=== PATIENT | female | born 1970 | race Caucasian/White ===

== ENCOUNTER 2017-06-27 08:33 | Day surgery (SDC) | payer OTHER ==
[2017-06-21 08:56] VITALS: BMI 30.9
[~2017-06-27 08:33] MED LIST: LACTATED RINGERS 1,000 ML IV SCH
[2017-06-27 09:05] VITALS: RESP 18; TEMP 97.9
[2017-06-27] MEDS ORDERED: LIDOCAINE 1% 20 ML VIAL (10MG/ML) FOR IV START INTRADERMA ONE (09:07)
[2017-06-27] MEDS ORDERED: MIDAZOLAM 2 MG/2 ML VIAL ONE (09:36)
[2017-06-27] MEDS ORDERED: GLYCOPYRROLATE 0.2 MG/ML 2 ML VIAL ONE (09:36)
[2017-06-27] MEDS ORDERED: PROPOFOL 10 MG/ML 20 ML VIAL IV ONE (09:36)
--- NOTE | 2017-06-27 09:43 | P.GSHP ---
History of Present Illness H&P Date: 06/27/17 Chief Complaint: History of colonic polyps Is a 46-year-old female presents today for colonoscopy. She has a history of colon polyps. Her last colonoscopy was 10 years ago. Past Medical History Past Medical History: Asthma, Hypertension Additional Past Medical History / Comment(s): loose stools then constipation, colitis, KIDNEY STONES History of Any Multi-Drug Resistant Organisms: MRSA Date of last positivie culture/infection: 2015 MDRO Source:: boil on stomach Past Surgical History: Cholecystectomy, Hysterectomy, Orthopedic Surgery, Tubal Ligation Additional Past Surgical History / Comment(s): several surgery for endometriosis. rt knee surgery x 2. lt knee surgery. cyst removed from jaw. rt shoulder repair Past Anesthesia/Blood Transfusion Reactions: No Reported Reaction Additional Past Anesthesia/Blood Transfusion Reaction / Comment(s): no hx blood transfusion Past Psychological History: ADD/ADHD, Anxiety Smoking Status: Never smoker Past Alcohol Use History: None Reported Past Drug Use History: None Reported - Past Family History Mother Family Medical History: No Reported History Father Family Medical History: Cancer Medications and Allergies Home Medications Medication Instructions Recorded Confirmed Type Albuterol Inhaler [Ventolin Hfa 1 puff INHALATION RT-Q6H PRN 05/13/14 06/21/17 History Inhaler] Albuterol Nebulized [Ventolin 2.5 mg INHALATION RT-Q6H PRN 05/13/14 06/21/17 History Nebulized] Dextroamphetamine/Amphetamine 20 mg PO BID 05/13/14 06/21/17 History [Adderall] Hydrochlorothiazide [Hydrodiuril] 25 mg PO DAILY 05/13/14 06/21/17 History Allergies Allergy/AdvReac Type Severity Reaction Status Date / Time No Known Allergies Allergy Verified 06/21/17 08:49 Surgical - Exam Vital Signs Temp Pulse Resp BP Pulse Ox 97.9 F 64 18 106/63 97 06/27/17 09:03 06/27/17 09:03 06/27/17 09:03 06/27/17 09:03 06/27/17 09:03 - General well developed, no distress - Eyes PERRL - ENT normal pinna - Neck no masses - Respiratory normal expansion - Cardiovascular Rhythm: regular - Abdomen Abdomen: soft, non tender Assessment and Plan Plan: History of colon polyps. We'll perform colonoscopy.
--- NOTE | 2017-06-27 10:03 | P.OP ---
Date of Procedure: 06/27/17 Preoperative Diagnosis: History of colon polyps Postoperative Diagnosis: Normal colonoscopy Procedure(s) Performed: Colonoscopy Implants: Anesthesia: MAC Surgeon: Jimmie Harrington Pathology: none sent Condition: stable Disposition: PACU Indications for Procedure: Operative Findings: Description of Procedure: PROCEDURE: The patient was placed on the endoscopy table in the lateral position. Digital rectal examination was performed which revealed no abnormalities. The prostate was symmetrical without nodules. Flexible colonoscope was then placed in the patient's anus and passed throughout the entire colon. The ileocecal valve was visualized. The cecum, ascending, transverse, descending and sigmoid colon were normal. The rectum was normal as well. There were no masses, polyps or diverticula noted in the entire colon. SUMMARY OF FINDINGS: Normal colonoscopy.
--- NOTE | 2017-06-27 10:05 | P.OP ---
Date of Procedure: 06/27/17 Preoperative Diagnosis: History of colon polyps Postoperative Diagnosis: Normal colonoscopy Procedure(s) Performed: Colonoscopy Implants: Anesthesia: MAC Surgeon: Jimmie Harrington Pathology: none sent Condition: stable Disposition: PACU Indications for Procedure: Operative Findings: Description of Procedure: PROCEDURE: The patient was placed on the endoscopy table in the lateral position. Digital rectal examination was performed which revealed no abnormalities. . Flexible colonoscope was then placed in the patient's anus and passed throughout the entire colon. The ileocecal valve was visualized. The cecum, ascending, transverse, descending and sigmoid colon were normal. The rectum was normal as well. There were no masses, polyps or diverticula noted in the entire colon. SUMMARY OF FINDINGS: Normal colonoscopy.
[2017-06-27 10:19] VITALS: BP 116/73; PULSE 78
== END 2017-06-27 10:35 | disposition home or self-care (01) ==
LOC: ORWHC2ENDO 08:33
PROVIDERS: ATTEND Surgery
DX: Z12.11 Encounter for screening for malignant neoplasm of colon (principal); Z86.010 Personal history of colon polyps; J45.909 Unspecified asthma, uncomplicated; I10 Essential (primary) hypertension; F90.9 Attention-deficit hyperactivity disorder, unspecified type; F41.9 Anxiety disorder, unspecified; Z79.899 Other long term (current) drug therapy
CPT/HCPCS: J2250; J2704; G0105

== ENCOUNTER → 2017-12-20 | Outpatient (CLI) | payer OTHER ==
--- NOTE | 2017-12-20 12:22 | CT ---
EXAMINATION TYPE: CT brain wo/w con DATE OF EXAM: 12/20/2017 COMPARISON: CT brain March 23, 2012 HISTORY: Headache unusual duration CT DLP: 1887.60 mGycm Automated Exposure Control for Dose Reduction was Utilized. TECHNIQUE: CT scan of the head is performed without and with IV Contrast, patient injected with 100 m l mL of Omnipaque 300. FINDINGS: Noncontrast images show no acute intracranial hemorrhage or midline shift. The ventricles and sulci are within normal limits in size. Rodriguez-white matter differentiation is maintained. Postcon trast images show no suspicious enhancing intraparenchymal mass. The globes are intact and the visual ized sinuses are clear. IMPRESSION: No significant finding is seen to account for patient's symptoms on current study.
== END ==
LOC: RADCTMAIN 09:40
PROVIDERS: ATTEND Nurse Practitioner Women's Health
DX: G44.85 Primary stabbing headache (principal)
CPT/HCPCS: 70470; Q9967

== ENCOUNTER → 2018-07-11 | Outpatient (CLI) | payer OTHER ==
--- NOTE | 2018-07-11 11:04 | XR ---
EXAMINATION TYPE: XR cervical spine w flex/ext DATE OF EXAM: 07/11/2018 TECHNIQUE: Frontal, lateral, oblique, dynamic flexion and extension lateral images, and open mouth vi ew of the cervical spine are obtained. HISTORY: BL arm numbness history of migraine headaches COMPARISON: Cervical spine x-ray May 21, 2010 FINDINGS: The cervical spine is visualized in its entirety from C1 thru the top of T1 level, it is s atisfactory in alignment without evidence of acute fracture or dislocation. The pre-vertebral soft t issue appears within normal limits. The C1-C2 articulation is within normal limits on the open mouth view. Vertebral body heights and disc space heights are maintained. The oblique images are within n ormal limits. Dynamic images show satisfactory flexion and extension without change in alignment or s uspicious focal disc space narrowing. Overlying soft tissue is unremarkable. IMPRESSION: Unremarkable study.
== END | disposition home or self-care (01) ==
LOC: RADXRMAIN 10:27
PROVIDERS: ATTEND Family Medicine
DX: R20.0 Anesthesia of skin (principal)
CPT/HCPCS: 72052

== ENCOUNTER → 2018-08-09 | Outpatient (CLI) | payer OTHER ==
[2018-08-08 15:41] VITALS: BMI 34.5
[2018-08-09 13:31] VITALS: BP 110/73; PULSE 81; RESP 18
--- NOTE | 2018-08-09 13:38 | P.CONS ---
History of Present Illness - Reason for Consult Consult date: 08/09/18 - Chief Complaint Right-sided headache - History of Present Illness This is a 47-year-old female with migraine headache and possible occipital neuralgia. The patient was referred to us for occipital nerve block by her neurologist. The patient is taking antimigraine medications but still her headache is not well controlled. She gets nauseated and sensitive to light with her. She also feels tingling in the left side of her body and even outside her migraine headaches. Past Medical History Past Medical History: Asthma, Hypertension Additional Past Medical History / Comment(s): ,colitis, KIDNEY STONES. CHRONIC HEADACHES. HX MRSA TO STOMACH, HEAD AND JAW-LAST + CULTURE FROM JAW IN 2017 History of Any Multi-Drug Resistant Organisms: MRSA Year Discovered:: 2017 MDRO Source:: JAW Past Surgical History: Cholecystectomy, Hysterectomy, Orthopedic Surgery, Tubal Ligation Additional Past Surgical History / Comment(s): several surgery for endometriosis. rt knee surgery x 2. lt knee surgery. cyst removed from jaw. rt shoulder repair Past Anesthesia/Blood Transfusion Reactions: No Reported Reaction Additional Past Anesthesia/Blood Transfusion Reaction / Comm: no hx blood transfusion Past Psychological History: ADD/ADHD, Anxiety Smoking Status: Never smoker Past Alcohol Use History: None Reported Past Drug Use History: None Reported - Past Family History Mother Family Medical History: No Reported History Father Family Medical History: Cancer Medications and Allergies Home Medications Medication Instructions Recorded Confirmed Type Albuterol Inhaler [Ventolin Hfa 1 puff INHALATION RT-Q6H PRN 05/13/14 08/09/18 History Inhaler] Albuterol Nebulized [Ventolin 2.5 mg INHALATION RT-Q6H PRN 05/13/14 08/09/18 History Nebulized] Dextroamphetamine/Amphetamine 20 mg PO BID 05/13/14 08/09/18 History [Adderall] Topiramate [Topamax] 100 mg PO HS 08/08/18 08/09/18 History Topiramate [Topiramate ER] 25 mg PO DAILY 08/08/18 08/09/18 History Allergies Allergy/AdvReac Type Severity Reaction Status Date / Time No Known Allergies Allergy Verified 08/09/18 13:03 Physical Exam Vitals: Vital Signs Pulse Resp BP Pulse Ox 08/09/18 13:05 81 18 110/73 96 Intake and Output 08/08/18 08/09/18 08/09/18 22:59 06:59 14:59 Other: Weight 88.451 kg - Constitutional General appearance: obese - EENT Eyes: PERRLA - Respiratory Respiratory: bilateral: CTA - Cardiovascular Rhythm: regular - Neurologic Neuro exam of the upper extremities showed normal muscle strength and normal and symmetrical deep tendon reflexes. She has significant tenderness in the occipital area on the right side. She also has tenderness in the right paravertebral cervical area. She has normal range of motion of the cervical spine Neurologic: CNII-XII intact - Psychiatric Psychiatric: A&O x's 3, appropriate affect, intact judgment & insight Assessment and Plan Assessment: Right occipital neuralgia Cervical spondylosis without myelopathy Possible cervicogenic headache Asthma Plan: I'll schedule the patient to have right greater occipital nerve block. if There is no improvement after this injection then we'll plan on doing MRI of the cervical spine. The patient's history of nausea postoperatively and asthma attack. When we do the above-mentioned procedure think we should give her Zofran preoperatively and she should used her inhalers too. The patient is on anti-migraine headache medications and she does not take any opioids. I thank you for the referral
== END | disposition home or self-care (01) ==
LOC: PNWHC3 12:54
PROVIDERS: ATTEND Anesthesiology
DX: M54.81 Occipital neuralgia (principal); M47.812 Spondylosis without myelopathy or radiculopathy, cervical region; J45.909 Unspecified asthma, uncomplicated; I10 Essential (primary) hypertension; Z90.49 Acquired absence of other specified parts of digestive tract; Z90.710 Acquired absence of both cervix and uterus; Z98.890 Other specified postprocedural states; Z79.899 Other long term (current) drug therapy
CPT/HCPCS: 99211

== ENCOUNTER → 2018-08-14 | Outpatient (CLI) | payer OTHER ==
[2018-08-14 14:46] LABS: Basophils % (A) 0 %; Eosinophils # (A) 0.2 k/uL (0-0.7); Eosinophils % (A) 1 %; HCT 52.2 % (34.0-46.0); HGB 16.6 gm/dL (11.4-16.0); Lymphocytes # (A) 2.1 k/uL (1.0-4.8); Lymphocytes % (A) 16 %; MCH 27.3 pg (25.0-35.0); MCHC 31.9 g/dL (31.0-37.0); MCV 85.6 fL (80.0-100.0); Mean Platelet Volume 5.9; Monocytes # (A) 0.5 k/uL (0-1.0); Monocytes % (A) 4 %; Neutrophils # (A) 10.7 k/uL (1.3-7.7); Neutrophils % (A) 78 %; Platelet Count 381 k/uL (150-450); RDW 13.5 % (11.5-15.5); WBC 13.7 k/uL (3.8-10.6)
[2018-08-14 15:07] LABS: ALT 37 U/L (9-52); AST 24 U/L (14-36); Alkaline Phosphatase 55 U/L (38-126); Anion Gap 9 mmol/L; Blood Urea Nitrogen 12 mg/dL (7-17); Calcium 9.8 mg/dL (8.4-10.2); Carbon Dioxide 24 mmol/L (22-30); Chloride 108 mmol/L (98-107); Glucose 104 mg/dL (74-99); Potassium 4.3 mmol/L (3.5-5.1); Sodium 141 mmol/L (137-145); Total Bilirubin 0.6 mg/dL (0.2-1.3)
[2018-08-14 15:52] LABS: Erythrocyte Sedimentation Rate 10 mm/hr (0-20)
[2018-08-15 14:02] LABS: APTT 44 Sec(s) (<43); APTT 1:1 Mix 38 Sec(s) (<43); DRVVT 1:1 Mix 42 Sec(s) (<44); Dilute Russell Viper Venom 51 Sec(s) (<44)
== END | disposition home or self-care (01) ==
LOC: LABWHC1 14:00
PROVIDERS: ATTEND Physician Assistant Medical
DX: M25.50 Pain in unspecified joint (principal)
CPT/HCPCS: 36415; 80053; 84443; 85025; 85613; 85652; 85730; 85732; 86038

== ENCOUNTER → 2018-08-21 | Day surgery (SDC) | payer OTHER ==
[2018-08-15 15:32] VITALS: BMI 34.5
[~2018-08-21] MED LIST changes: +IV FLUID CONTINUATION 1,000 ML IV ONE; +LIDOCAINE 1% 20 ML VIAL (10MG/ML) FOR IV START INTRADERMA ONE; +ONDANSETRON 4 MG/2 ML VIAL IVP ONE; +ONDANSETRON 4 MG/2 ML VIAL ONE
[2018-08-21 08:20] VITALS: TEMP 96.9
--- NOTE | 2018-08-21 09:14 | P.PCN ---
Date of Procedure: 08/21/18 Procedure(s) Performed: Preoperative diagnoses= 1- occipital neuralgia 2-cervical spondylosis Postoperative diagnoses= same as preoperative diagnosis. Procedure= right Greater occipital nerve block Anesthesia= moderate sedation with Versed 2 mg and fentanyl 100 micrograms. Estimated blood loss=minimal. Procedure indication= the patient had a history of severe chronic neck pain , and headache, diagnosed with occipital neuralgia exam was positive for severe tenderness over the occipital nerve bilaterally, she will be a good candidate occipital nerve block, patient failed conservative management Procedure description= the patient was seen and identified in the preoperative holding area, risks and benefits and alternative of the procedure and possible complications discussed with the patient, and he agreed with the preceding, patient signed the consent, an IV was started, and vital signs were monitored and were stable throughout the procedure, patient was placed in the sitting position or table and the neck area was prepped and draped with a sterile fashion, vital signs were closely monitored during the procedure, 25-gauge needle advanced 1 inch lateral to the occipital protuberance on the right side , at the location of the right occipital nerve , then after negative aspiration for heme and CSF and there was no paresthesia during the injection, 6 ml of Robivacaine 0.5% and 20 mg of Kenalog injected after negative aspiration, the needle removed,. Patient tolerated the procedure well without any complication, The patient returned to supine position after the back was cleaned and a Band- Aid applied, the patient transported to recovery room in stable condition and he was monitored for 30 minutes before he was discharged home and then patient was reexamined before going home and patient was discharged in stable condition and patient will follow up with the pain clinic in a f
[2018-08-21 09:54] VITALS: BP 124/82; PULSE 74; RESP 18
== END | disposition home or self-care (01) ==
LOC: ORPAIN 07:44
PROVIDERS: ATTEND Specialist
DX: M54.81 Occipital neuralgia (principal); G89.29 Other chronic pain; M47.812 Spondylosis without myelopathy or radiculopathy, cervical region
CPT/HCPCS: 64405; J2250; J3301; J2405; J3010

== ENCOUNTER → 2018-09-18 | Day surgery (SDC) | payer OTHER ==
[2018-09-12 11:13] VITALS: BMI 33.6
[~2018-09-18] MED LIST changes: -IV FLUID CONTINUATION 1,000 ML IV ONE; -LIDOCAINE 1% 20 ML VIAL (10MG/ML) FOR IV START INTRADERMA ONE; -ONDANSETRON 4 MG/2 ML VIAL IVP ONE; +SODIUM CHLORIDE 0.9% 500 ML 500 ML IV ONE
[2018-09-18 10:10] VITALS: TEMP 98
--- NOTE | 2018-09-18 11:11 | P.PCN ---
Date of Procedure: 09/18/18 Procedure(s) Performed: Preoperative diagnoses= 1- occipital neuralgia 2-cervical spondylosis Postoperative diagnoses= same as preoperative diagnosis. Procedure= right Greater occipital nerve block Anesthesia= moderate sedation with Versed 2 mg and fentanyl 100 micrograms. Estimated blood loss=minimal. Procedure indication= the patient had a history of severe chronic neck pain , and headache, diagnosed with occipital neuralgia exam was positive for severe tenderness over the occipital nerve bilaterally, she will be a good candidate occipital nerve block, patient failed conservative management Procedure description= the patient was seen and identified in the preoperative holding area, risks and benefits and alternative of the procedure and possible complications discussed with the patient, and he agreed with the preceding, patient signed the consent, an IV was started, and vital signs were monitored and were stable throughout the procedure, patient was placed in the sitting position or table and the neck area was prepped and draped with a sterile fashion, vital signs were closely monitored during the procedure, 25-gauge needle advanced 1 inch lateral to the occipital protuberance on the right side , at the location of the right occipital nerve , then after negative aspiration for heme and CSF and there was no paresthesia during the injection, 6 ml of Robivacaine 0.5% and 20 mg of Kenalog injected after negative aspiration, the needle removed,. Patient tolerated the procedure well without any complication, The patient returned to supine position after the back was cleaned and a Band- Aid applied, the patient transported to recovery room in stable condition and he was monitored for 30 minutes before he was discharged home and then patient was reexamined before going home and patient was discharged in stable condition and patient will follow up with the pain clinic in a few weeks
[2018-09-18 11:44] VITALS: BP 117/67; PULSE 78; RESP 16
== END ==
LOC: ORPAIN 09:22
PROVIDERS: ATTEND Specialist
DX: M54.81 Occipital neuralgia (principal); M47.812 Spondylosis without myelopathy or radiculopathy, cervical region; Z86.14 Personal history of Methicillin resistant Staphylococcus aureus infection
CPT/HCPCS: 64405; J2250; J3301; J2405; J3010

== ENCOUNTER → 2018-10-01 | Outpatient (CLI) | payer OTHER ==
--- NOTE | 2018-10-01 16:17 | MR ---
EXAMINATION TYPE: MR cervical spine wo con DATE OF EXAM: 10/01/2018 COMPARISON: Plain film 07/11/2018 HISTORY: Cervicalgia TECHNIQUE: Multiplanar, multisequence images of the cervical spine were acquired. C2-C3: No evidence for degenerative disc disease. No disc bulge/herniation or protrusion. No Canal stenosis. Foramina are patent bilaterally. C3-C4: No evidence for degenerative disc disease. No disc bulge/herniation or protrusion. No Canal stenosis. Foramina are patent bilaterally. C4-C5: No evidence for degenerative disc disease. No disc bulge/herniation or protrusion. No Canal stenosis. Foramina are patent bilaterally. C5-C6: No evidence for degenerative disc disease. No disc bulge/herniation or protrusion. No Canal stenosis. Foramina are patent bilaterally. C6-C7: No evidence for degenerative disc disease. No disc bulge/herniation or protrusion. No Canal stenosis. Foramina are patent bilaterally. C7-T1: No evidence for degenerative disc disease. No disc bulge/herniation or protrusion. No Canal stenosis. Foramina are patent bilaterally. Cervical segments are intact. There is normal alignment. Cervical spinal cord is of normal signal. Craniovertebral junction relationships are within normal limits. IMPRESSION: Normal cervical spine MRI
== END | disposition home or self-care (01) ==
LOC: RADMRIMAIN 12:00
PROVIDERS: ATTEND Family Medicine
DX: M54.2 Cervicalgia (principal)
CPT/HCPCS: 72141

== ENCOUNTER → 2018-10-04 | Outpatient (CLI) | payer OTHER ==
[2018-10-04 13:55] VITALS: BP 128/62; PULSE 99; RESP 16
--- NOTE | 2018-10-04 14:48 | P.PAINPG ---
Subjective Progress Note Date: 10/04/18 This is a follow-up visit for this 48 years old female with a chronic history of severe, neck pain and severe headache, she is diagnosed with right-sided occipital neuralgia, and cervicogenic headache, she reported that the her headache now becoming bilateral, it is spreading from the right side towards the left side, increased with any neck movement, and she had a recent MRI of the cervical spine that showed that she had no significant abnormalities, patient denies any motor or sensory deficit, she denies any fever or night sweats, and there is no change in the bowel movement or urination, we have done occipital nerve block 2, and she reported that she had serial benefits from it. She continued to have severe headache associated with severe neck pain Patient tried multiple medication for migraine headache without any benefit Objective - Vital Signs Vital signs: Vital Signs Temp Pulse 99 10/04/18 13:45 Resp 16 10/04/18 13:45 BP 128/62 10/04/18 13:45 Pulse Ox 96 10/04/18 13:45 Intake & Output 10/03/18 10/04/18 10/04/18 18:59 06:59 18:59 Weight 88.451 kg - Exam Physical Examinations : 1-Constitutiona : Cooperative , not in acute distress . 2-HEENT : nech ; supple , no Lymphadenopathy , normal thyroid size . eyes : no ptosis , no icterus, no photophobia . ENT : normal of hearing , normal oropharynx , no Thrush . 3- Respiratory : Chest clear to auscultations Bilaterally , no wheezing , no Rhonchi . 4- Cardiovascular : regular rate and rhythem , S1 , S2 , no S3 , no S4. 5- Gastrointestinal : abdomen soft no tenderness , bowel sounds , no organomegally . 6- Genitourinary : Defferred . 7- neurologic : Cranial nerve II to XII intact , no focal neurological deffecit . 8-psychatric : alert , oriented X 3 , appropriate affect , intact judgment and insight . 9-Lymphatic : no Lymphadenopathy . 10- musculoskeltal : Cervical Spine motor stregnth in the deltoid and biceps, normal right side , normal Left side motor stregnth biceps and the wrist extensors normal right side ,normal left side . motor stregnth in the triceps muscle . normal Right side , normal Left side deep tendon reflexes normal at the biceps , normal at Brachioradialis , normal at triceps. positive cervical facet loading test Severe tenderness over the occipital nerves bilaterally Multiple trigger point in the cervical paravertebral muscles and suprascapular muscles and rhomboid muscles.. Lumber spine moter stegnth lower extremities , thigh and legs 5/5 Right side , 5/5 Left side Multiple trigger points identified in the lumbar paravertebral muscles Assessment and Plan Plan: Assessment and plan= 1-bilateral occipital neuralgia. 2-cervicogenic headache 3-fibromyalgia Patient had no benefit from occipital nerve block done previously. Patient potentially could benefit from cervical medial branch block at C2 3 , C3 4 , and third occipital nerve And if she had good benefit from a block then we will proceed with the radiofrequency ablation of the medial branch at the leveles mentioned above. Patient reported she had no benefit from Neurontin , I will discontinue Neurontin and start patient on Lyrica 25 mg 3 times a day Also patient could benefit from amitriptyline 25 mg every at bedtime, and this will be a treatment for pain, headache, and sleep, Clinic will help to improve her mood Time with Patient: Less than 30 PQRS Measure Charge Sheet Measure #130: Documentation of Current Meds in Medical Chart: Patient's medications documented in chart Measure #226: Tobacco Use: Screen & Cessation Intervention: Pt not a tobacco user Measure #111: Pneumonia Vaccination: Pneumococcal vaccine administered or previously received Measure #47: Advance Care Plan: Advance care planning discussed & documented, pt chose/unable to give Measure #412: Opioid Treatment Agreement: No documentation of signed opioid treatment agreement Measure #408: Opioid Therapy Follow-up Evaluation: Patient had NO f/u eval minimum every 3 months during opioid therapy Measure #317: Preventitive Care & Scrn High Bld Press & F/U: Normal blood pressure, f/u not required Measure #128: Body Mass Index (BMI) Screening & Follow-up: BMI documented ABOVE normal parameters - f/u documented Measure #131: Pain Assessment & Follow-up: Pain positive & plan documented, Follow-up scheduled Measure #431: Unhealthy Alcohol Use Preventative Care & Scrn: Patient not identified as an unhealthy alcohol user PQRS Narrative: Smoking Status Never smoker Do You Want the Pneumonia No Vaccine AT THIS TIME? Blood Pressure 128/62 Pain Intensity [Bilateral 6 Posterior Neck] Scale Used Numeric (1 - 10) Hx Alcohol Use (MH) No Home Medications: Ambulatory Orders Albuterol Inhaler [Ventolin Hfa Inhaler] 1 puff INHALATION RT-Q6H PRN 05/13/14 Albuterol Nebulized [Ventolin Nebulized] 2.5 mg INHALATION RT-Q6H PRN 05/13/14 Dextroamphetamine/Amphetamine [Adderall] 20 mg PO BID 05/13/14 Ondansetron [Zofran] 4 mg PO Q12HR PRN 08/15/18 Ergocalciferol (Vitamin D2) [Vitamin D2] 50,000 unit PO WEEKLY 10/04/18 Gabapentin [Neurontin] 300 mg PO TID 10/04/18 Omeprazole 20 mg PO DAILY 10/04/18 Controlled Substance Measures - Controlled Substance Measures Is patient prescribed a controlled substance at discharge?: No When asked, does pt state using other controlled substances?: No If prescribed controlled substance>3 days was MAPS reviewed?: No If Rx opioid, was Start Talking consent form obtained?: No If opioid is for acute pain is fill amount 7 days or less?: No Was information provided regarding opioid addiction?: No
== END | disposition home or self-care (01) ==
LOC: PNWHC3 13:24
PROVIDERS: ATTEND Specialist
DX: G89.29 Other chronic pain (principal); R51 Headache; M54.81 Occipital neuralgia; M79.7 Fibromyalgia; M54.2 Cervicalgia; Z79.899 Other long term (current) drug therapy
CPT/HCPCS: 99211

== ENCOUNTER 2018-11-12 06:59 | Day surgery (SDC) | payer OTHER ==
[2018-10-16 14:25] VITALS: BMI 35.1
[~2018-11-12 06:59] MED LIST changes: -LACTATED RINGERS 1,000 ML IV SCH; -ONDANSETRON 4 MG/2 ML VIAL ONE; -SODIUM CHLORIDE 0.9% 500 ML 500 ML IV ONE; +SODIUM CHLORIDE 0.9% 500 ML 500 ML IV SCH
[2018-11-12 07:28] VITALS: TEMP 97.9
[2018-11-12] MEDS ORDERED: LACTATED RINGERS 1,000 ML IV ONE ×2 (07:29→08:25)
--- NOTE | 2018-11-12 08:27 | P.PCN ---
Date of Procedure: 11/12/18 Procedure(s) Performed: PREOPERATIVE DIAGNOSIS: 1-Cervical Spondylosis with Facet Arthropathy.without myelopathy. 2-occipital neuralgia. 3-cervicogenic headache POSTOPERATIVE DIAGNOSIS: Same as preop diagnosis. PROCEDURES: Diagnostic Bilateral C2-3 ,C3-4,medial branch blocks, with fluoroscopic guidance. Diagnostic bilateral 3rd occipital nerve blocks under fluoroscopy guidance ANESTHESIA: Local with 1% lidocaine; moderate sedation with Versed 2 mg , and fentanyl 100 micrograms EBL: Minimal PROCEDURE INDICATION: The patient with neck pain and headache ,unresponsive to more conservative treatments. PROCEDURE DESCRIPTION / TECHNIQUE: The patient was seen and identified in the preoperative area. Risks, benefits, complications, and alternatives were discussed with the patient, the patient agreed to proceed with the procedure and signed the consent. IV was started. Vital signs remained stable throughout the procedure. Patient was taken to the OR and time out was completed. The patient was placed in the prone position on the procedure table. A pillow was placed under the patients chest to increase the cervical interlaminar space. The cervical area was prepped and draped in the usual sterile fashion. Critical pause was taken. Vital signs were closely monitored during the procedure. Conscious sedation was used during the procedure to decrease patients anxiety. Using cross-table lateral fluoroscopy, the centroid of the trapezoid of right C2 ,C3, was identified, marked, and localized with 1% lidocaine 1 ml at each level for skin and Sub Q infiltrations . Subsequently, a 22 G spinal needle was advanced guided by fluoroscopy to the centroid of the trapezoid of Right C2 ,C3, [place] tip position was confirmed at the centroid of the trapezoids of Right C2 ,C3 with anteroposterior fluoroscopy. Subsequently, 1ml of preservative-free Ropivacaine 0.5% mixed with Depo-Medrol 20 mg and half ml of the mixture was injected after negative aspiration for blood and CSF. [place] was then removed intact the same procedure was repeated at the left C2- 3, C3-4, levels. And to do the third occipital nerve block 22-gauge Quincke Needle placed at the center of the facet joint between the C2 and C3 vertebra, needle placement confirmed with AP and lateral view,first I did the right side , needle placement confirmed with AP and lateral view, then after needle placement confirmed ropivacaine 0.5% half mL injected after negative aspiration, and the same procedure done for the left side ,left side third occipital nerve block under fluoroscopy guidance after needle placement confirmed ropivacaine 0.5% half mL injected after negative aspiration COMPLICATIONS: No acute complications. DISPOSITION / PLANS: The patient was placed in a supine position and transferred to the recovery area in a stable condition for observation and was discharged from the recovery room after meeting discharge criteria. Home discharge instructions given to the patient by the staff. The patient was reexamined prior to discharge. The patient will schedule a follow up in the clinic in 2-4 weeks.
[2018-11-12 08:56] VITALS: BP 104/71; PULSE 70; RESP 16
--- NOTE | 2018-11-12 09:49 | FL ---
EXAMINATION TYPE: FL guided pain mgmt statistic DATE OF EXAM: 11/12/2018 FLUOROSCOPY Fluoroscopy time of 32 seconds was used during bilateral cervical facet block. 3 image/s document/s the procedure.
== END 2018-11-12 08:57 | disposition home or self-care (01) ==
LOC: ORPAIN 06:59
PROVIDERS: ATTEND Specialist
DX: M47.812 Spondylosis without myelopathy or radiculopathy, cervical region (principal); M54.81 Occipital neuralgia; Z90.710 Acquired absence of both cervix and uterus
CPT/HCPCS: 64490; 64491; J2250; J1030; J3010; 99152

== ENCOUNTER → 2018-12-04 | Day surgery (SDC) | payer OTHER ==
[2018-11-29 16:16] VITALS: BMI 35.1
[~2018-12-04] MED LIST changes: +IV FLUID CONTINUATION 1,000 ML IV ONE; +LACTATED RINGERS 1,000 ML IV ONE; +LIDOCAINE 1% 20 ML VIAL (10MG/ML) FOR IV START INTRADERMA ONE
[2018-12-04 08:15] VITALS: RESP 18; TEMP 97.8
--- NOTE | 2018-12-04 09:40 | P.PCN ---
Date of Procedure: 12/04/18 Procedure(s) Performed: PREOPERATIVE DIAGNOSIS:1-Cervical Spondylosis with Facet Arthropathy.without myelopathy. 2-occipital neuralgia. 3-cervicogenic headache POSTOPERATIVE DIAGNOSIS: Same as preop diagnosis. PROCEDURES: Diagnostic Bilateral C2-3 ,C3-4,medial branch blocks, with fluoroscopic guidance. ( # 2nd ) Diagnostic bilateral 3rd occipital nerve blocks under fluoroscopy guidance ANESTHESIA: Local with 1% lidocaine; moderate sedation with Versed 2 mg , and fentanyl 100 micrograms EBL: Minimal PROCEDURE INDICATION: The patient with neck pain and headache ,unresponsive to more conservative treatments. PROCEDURE DESCRIPTION / TECHNIQUE: The patient was seen and identified in the preoperative area. Risks, benefits, complications, and alternatives were discussed with the patient, the patient agreed to proceed with the procedure and signed the consent. IV was started. Vital signs remained stable throughout the procedure. Patient was taken to the OR and time out was completed. The patient was placed in the prone position on the procedure table. A pillow was placed under the patients chest to increase the cervical interlaminar space. The cervical area was prepped and draped in the usual sterile fashion. Critical pause was taken. Vital signs were closely monitored during the procedure. Conscious sedation was used during the procedure to decrease patients anxiety. Using cross-table lateral fluoroscopy, the centroid of the trapezoid of right C2 ,C3, was identified, marked, and localized with 1% lidocaine 1 ml at each level for skin and Sub Q infiltrations . Subsequently, a 22 G spinal needle was advanced guided by fluoroscopy to the centroid of the trapezoid of Right C2 ,C3, Mcandrews tip position was confirmed at the centroid of the trapezoids of Right C2 ,C3 with anteroposterior fluoroscopy. Subsequently, 1ml of preservative-free Ropivacaine 0.5% mixed with Kenalog 20 mg and half ml of the mixture was injected after negative aspiration for blood and CSF. Mcandrews was then removed intact the same procedure was repeated at the left C2-3, C3-4 , levels. And to do the third occipital nerve block 22-gauge Quincke Needle placed at the center of the facet joint between the C2 and C3 vertebra, needle placement confirmed with AP and lateral view,first I did the right side , needle placement confirmed with AP and lateral view, then after needle placement confirmed ropivacaine 0.5% half mL injected after negative aspiration, and the same procedure done for the left side ,left side third occipital nerve block under fluoroscopy guidance after needle placement confirmed ropivacaine 0.5% half mL injected after negative aspiration COMPLICATIONS: No acute complications. DISPOSITION / PLANS: The patient was placed in a supine position and transferred to the recovery area in a stable condition for observation and was discharged from the recovery room after meeting discharge criteria. Home discharge instructions given to the patient by the staff. The patient was reexamined prior to discharge. The patient will schedule a follow up in the clinic in 2-4 weeks.
[2018-12-04 10:02] VITALS: BP 115/70; PULSE 79
--- NOTE | 2018-12-04 14:23 | FL ---
EXAMINATION TYPE: FL guided pain mgmt statistic DATE OF EXAM: 12/04/2018 FLUOROSCOPY Fluoroscopy time of 12 seconds was used during bilateral cervical facet injections. 4 image/s docume nt/s the procedure.
== END | disposition home or self-care (01) ==
LOC: ORPAIN 07:48
PROVIDERS: ATTEND Specialist
DX: M47.812 Spondylosis without myelopathy or radiculopathy, cervical region (principal); M54.81 Occipital neuralgia
CPT/HCPCS: 64490; 64491; 64450; J2250; J3301; J3010; 99152; 99153

== ENCOUNTER 2019-04-25 08:19 | Day surgery (SDC) | payer OTHER ==
[2019-04-19 15:25] VITALS: BMI 34.3
[~2019-04-25 08:19] MED LIST changes: -IV FLUID CONTINUATION 1,000 ML IV ONE; -LACTATED RINGERS 1,000 ML IV ONE; +LACTATED RINGERS 1,000 ML IV SCH; -LIDOCAINE 1% 20 ML VIAL (10MG/ML) FOR IV START INTRADERMA ONE; +LIDOCAINE 1% 20 ML VIAL (10MG/ML) FOR IV START INTRADERMA PRN; -SODIUM CHLORIDE 0.9% 500 ML 500 ML IV SCH
[2019-04-25] MEDS ORDERED: LACTATED RINGERS 1,000 ML IV ONE (08:50)
[2019-04-25 08:54] VITALS: TEMP 98.4
[2019-04-25] MEDS ORDERED: PROPOFOL 10 MG/ML 20 ML VIAL IV ONE (09:25)
--- NOTE | 2019-04-25 09:58 | P.PCN ---
Date of Procedure: 04/25/19 Procedure(s) Performed: Procedure: Total colonoscopy. Preoperative diagnosis: Chronic constipation. Postoperative diagnosis: Less than ideal preparation, however, exam to the cecum within normal limits. Preparation: HalfLytely prep. Sedation: Was provided by anesthesia. Brief clinical history: The patient is a 48-year-old female who I have followed in the office regarding her chronic constipation. The patient was first seen in November of this year and reported absent bowel movement for 6 weeks or up to 2 months. Has history of cancer in multiple family members and she is worried about that. I scheduled this evaluation to rule out with confidence any pathology and to guide her therapy. Procedure: With the patient on her left lateral decubitus position and after informed consent and adequate sedation, the perianal area was inspected and it did not show any fissures or fistulas. There were no masses felt on digital rectal examination. The Olympus CFH 190L video colonoscope was then inserted in the rectum in the usual fashion and advanced to the cecum. Unfortunately, the preparation was less than ideal. I spent some time cleansing the bowel as I was withdrawing the endoscope. There was no obvious mucosal abnormalities or any obvious polyps or tumors or any obvious diverticular disease or other pathology. I retroflexed the endoscope in the rectum before the endoscope was withdrawn. The patient tolerated the procedure well. Plan: The patient was reassured. We reemphasized dietary measures and fluid intake and use of stool softeners and laxatives. I will try to work with her insurance to find which additional medical interventions are covered including a trial with lubiprostone (amitiza) or linaclotide (linzess). I will keep you updated on her progress.
[2019-04-25 10:16] VITALS: BP 125/74; PULSE 77; RESP 16
== END 2019-04-25 10:51 | disposition home or self-care (01) ==
LOC: ORWHC2ENDO 08:19
DX: K59.09 Other constipation (principal); K21.9 Gastro-esophageal reflux disease without esophagitis; J45.909 Unspecified asthma, uncomplicated; I10 Essential (primary) hypertension; M79.7 Fibromyalgia; M19.90 Unspecified osteoarthritis, unspecified site; G43.909 Migraine, unspecified, not intractable, without status migrainosus; N20.0 Calculus of kidney; Z90.710 Acquired absence of both cervix and uterus; Z90.49 Acquired absence of other specified parts of digestive tract; Z79.899 Other long term (current) drug therapy; Z88.8 Allergy status to other drugs, medicaments and biological substances
CPT/HCPCS: 45378; J2704

== ENCOUNTER 2020-01-20 09:02 | Emergency (ER) | payer OTHER ==
[2020-01-20 09:07] VITALS: RESP 18
[2020-01-20] MEDS ORDERED: HYDROmorphone 1 MG/ML 1 ML SYRINGE IM STA (09:26)
[2020-01-20] MEDS ORDERED: ORPHENADRINE 30 MG/ML 2 ML VIAL IM STA (09:26)
--- NOTE | 2020-01-20 09:32 | ED ---
Back Pain [facility] - General Chief Complaint: Back Pain/Injury Stated Complaint: low back pain Time Seen by Provider: 01/20/20 09:12 Source: patient, RN notes reviewed Limitations: no limitations - History of Present Illness Initial Comments: This a 49-year-old female presents emergency Department chief complaint of left low back pain. Patient states started 4 days ago. Patient states pain is worsening. She states that she took her mother's pain and with no relief. Patient denies any bowel, bladder incontinence or retention or saddle anesthesias. Patient states that she does have history of back pain but this is not her usual location. Patient states that she used to see pain management. Patient states that she has no dysuria no hematuria. Patient states pain is her left flank region. She has no complaints abdominal pain no chest pain or shortness breath. - Related Data Home Medications Medication Instructions Recorded Confirmed Albuterol Inhaler [Ventolin Hfa 1 puff INHALATION Q6HR PRN 05/13/14 04/19/19 Inhaler] Albuterol Nebulized [Ventolin 2.5 mg INHALATION Q6HR PRN 05/13/14 04/19/19 Nebulized] Dextroamphetamine/Amphetamine 20 mg PO BID 05/13/14 04/19/19 [Adderall] Ondansetron [Zofran] 4 mg PO Q12HR PRN 08/15/18 04/19/19 Ergocalciferol (Vitamin D2) 50,000 unit PO WE 10/04/18 04/19/19 [Vitamin D2] Pregabalin [Lyrica] 25 mg PO TID 10/04/18 04/19/19 Amitriptyline HCl [Elavil] 50 mg PO HS 04/19/19 04/19/19 Cyclobenzaprine [Flexeril] 5 - 10 mg PO HS 04/19/19 04/19/19 Loratadine [Claritin] 10 mg PO DAILY 04/19/19 04/19/19 Omeprazole 40 mg PO DAILY 04/19/19 04/19/19 Previous Rx's Medication Instructions Recorded Ibuprofen [Motrin] 600 mg PO Q8HR PRN #30 tab 01/20/20 Orphenadrine [Norflex] 100 mg PO Q12H #14 tablet.er 01/20/20 predniSONE 50 mg PO DAILY #5 tab 02/24/20 Allergies Allergy/AdvReac Type Severity Reaction Status Date / Time duloxetine [From Cymbalta] Allergy skin got Verified 01/20/20 09:02 red and itchy, nausea Review of Systems ROS Statement: Those systems with pertinent positive or pertinent negative responses have been documented in the HPI. ROS Other: All systems not noted in ROS Statement are negative. Past Medical History Past Medical History: Asthma, Fibromyalgia, GERD/Reflux, Hypertension, Osteoarthritis (OA), Pneumonia Additional Past Medical History / Comment(s): hx KIDNEY STONES, Migraines, Past RX for BP-none currently, chronic bronchitis, Hiatal Hernia, IBS, Gastritis, Esophagitis, SCOLIOSIS, History of Any Multi-Drug Resistant Organisms: MRSA Date of last positivie culture/infection: 04/2018 MDRO Source:: HX MRSA STOMACH, HEAD AND JAW, GROIN - LAST 04/2018 Past Surgical History: Cholecystectomy, Hysterectomy, Orthopedic Surgery, Tubal Ligation Additional Past Surgical History / Comment(s): Several surgery for endometriosis, Rt knee arthroscopy x 2, lt knee arthroscopy, Cyst removed from jaw, Rt shoulder rotator cuff, MULT PAIN PROC, Past Anesthesia/Blood Transfusion Reactions: Motion Sickness Additional Past Anesthesia/Blood Transfusion Reaction / Comment(s): . Past Psychological History: ADD/ADHD, Anxiety, PTSD Smoking Status: Never smoker Past Alcohol Use History: None Reported Past Drug Use History: None Reported - Past Family History Mother Family Medical History: No Reported History Father Family Medical History: Cancer General Exam Limitations: no limitations General appearance: alert, in no apparent distress Head exam: Present: atraumatic, normocephalic, normal inspection Neck exam: Present: normal inspection, full ROM. Absent: tenderness, meningismus, lymphadenopathy Respiratory exam: Present: normal lung sounds bilaterally. Absent: respiratory distress, wheezes, rales, rhonchi, stridor Cardiovascular Exam: Present: regular rate, normal rhythm, normal heart sounds. Absent: systolic murmur, diastolic murmur, rubs, gallop, clicks GI/Abdominal exam: Present: soft, normal bowel sounds. Absent: distended, tenderness, guarding, rebound, rigid Back exam: Present: muscle spasm, paraspinal tenderness. Absent: CVA tenderness (R), CVA tenderness (L), vertebral tenderness Neurological exam: Present: alert, oriented X3 Skin exam: Present: warm, dry, intact, normal color. Absent: rash Course Vital Signs 01/20/20 09:04 Temperature 97.9 F Pulse Rate 98 Respiratory 18 Rate Blood Pressure 128/79 O2 Sat by Pulse 100 Oximetry Medical Decision Making - Medical Decision Making X-ray of the lumbar spine does not reveal any acute abnormality's. Patient is neurologically intact with no red flag symptoms. Patient has some radicular symptoms. Patient will follow-up with her neurologist that she seen past with pain management. Patient we discharged in stable condition and return parameters were discussed. - Lab Data Lab Results 01/20/20 Range/Units 09:40 Urine Color Yellow Urine Appearance Cloudy H (Clear) Urine pH 5.5 (5.0-8.0) Ur Specific [place] 1.026 (1.001-1.035) Urine Protein Negative (Negative) Urine Glucose (UA) Negative (Negative) Urine Ketones Negative (Negative) Urine Blood Negative (Negative) Urine Nitrite Negative (Negative) Urine Bilirubin Negative (Negative) Urine Urobilinogen <2.0 (<2.0) mg/dL Ur Leukocyte Esterase Trace H (Negative) Urine RBC <1 (0-5) /hpf Urine WBC 3 (0-5) /hpf Ur Squamous Epith Cells 10 H (0-4) /hpf Urine Bacteria Rare H (None) /hpf Urine Mucus Rare H (None) /hpf Disposition Clinical Impression: Sciatica Disposition: HOME SELF-CARE Condition: Stable Instructions (If sedation given, give patient instructions): Acute Low Back Pain (ED) Additional Instructions: Please return to the Emergency Department if symptoms worsen or any other concerns. Prescriptions: Ibuprofen [Motrin] 600 mg PO Q8HR PRN #30 tab PRN Reason: Pain Orphenadrine [Norflex] 100 mg PO Q12H #14 tablet.er predniSONE 50 mg PO DAILY #5 tab Is patient prescribed a controlled substance at d/c from ED?: No Referrals: Pam Howard DO [Primary Care Provider] - 1-2 days Time of Disposition: 10:45
--- NOTE | 2020-01-20 10:05 | XR ---
EXAMINATION TYPE: XR lumbosacral spine min 4V DATE OF EXAM: 01/20/2020 CLINICAL HISTORY: Back pain with no known injury TECHNIQUE: Frontal, lateral, and oblique images of the lumbar spine are obtained. COMPARISON: None FINDINGS: There are 5 lumbar type vertebral bodies identified. The lumbar spine shows satisfactory alignment without evidence of acute fracture or dislocation. Vertebral body heights and disk space he ights are within normal limits. The oblique images appear within normal limits. The overlying soft tissue appears unremarkable.. Cholecystectomy clips are evident. IMPRESSION: No acute fracture or or malalignment is seen in the lumbar spine.
[2020-01-20 10:21] LABS: Appearance,Urine Cloudy (Clear); Bacteria,Urine Rare /hpf; Bilirubin,Urine Negative (Negative); Blood,Urine Negative (Negative); Color,Urine Yellow; Glucose,Urine (UA) Negative (Negative); Ketones,Urine Negative (Negative); Leukocyte Esterase,Urine Trace (Negative); Mucus,Urine Rare /hpf; Nitrite,Urine Negative (Negative); PH, Urine 5.5 (5.0-8.0); Protein,Urine Negative (Negative); RBC,Urine <1 /hpf (0-5); Specific Gravity,Urine 1.026 (1.001-1.035); Squamous Epithelial Cell,Urine 10 /hpf (0-4); Urobilinogen,Urine <2.0 mg/dL (<2.0); WBC,Urine 3 /hpf (0-5)
[2020-01-20] MEDS ORDERED: ACET/COD 300 MG/30 MG STARTER PACK 6 TAB BTL PO STA (10:45)
[2020-01-20 11:25] VITALS: BP 110/56; PULSE 73; TEMP 97.4
== END 2020-01-20 11:25 | disposition home or self-care (01) ==
LOC: EC 09:02
DX: M54.42 Lumbago with sciatica, left side (principal); J45.909 Unspecified asthma, uncomplicated; F90.9 Attention-deficit hyperactivity disorder, unspecified type; K21.9 Gastro-esophageal reflux disease without esophagitis; I10 Essential (primary) hypertension; Z79.899 Other long term (current) drug therapy; Z88.8 Allergy status to other drugs, medicaments and biological substances
CPT/HCPCS: 81001; 72110; 99283; 96372 ×2; J2360; J1170

== ENCOUNTER 2020-04-13 18:12 | Emergency (ER) | payer OTHER ==
[2020-04-13 18:26] VITALS: RESP 18; TEMP 98.3
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
[2020-04-13] MEDS ORDERED: ORPHENADRINE 30 MG/ML 2 ML VIAL IM STA (19:43)
[2020-04-13] MEDS ORDERED: HYDROmorphone 1 MG/ML 1 ML SYRINGE IM STA (19:43)
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
[2020-04-13 20:47] VITALS: BP 131/88; PULSE 94
== END 2020-04-13 20:51 | disposition home or self-care (01) ==
LOC: EC 18:12
DX: S16.1XXA Strain of muscle, fascia and tendon at neck level, initial encounter (principal); M54.12 Radiculopathy, cervical region; J45.909 Unspecified asthma, uncomplicated; K21.9 Gastro-esophageal reflux disease without esophagitis; I10 Essential (primary) hypertension; M19.90 Unspecified osteoarthritis, unspecified site; F90.9 Attention-deficit hyperactivity disorder, unspecified type; M79.7 Fibromyalgia; K58.9 Irritable bowel syndrome, unspecified; F41.9 Anxiety disorder, unspecified; Z79.51 Long term (current) use of inhaled steroids; Z79.899 Other long term (current) drug therapy; Z88.8 Allergy status to other drugs, medicaments and biological substances; Z87.19 Personal history of other diseases of the digestive system; Y92.410 Unspecified street and highway as the place of occurrence of the external cause; Z98.890 Other specified postprocedural states; V49.40XA Driver injured in collision with unspecified motor vehicles in traffic accident, initial encounter; Y93.89 Activity, other specified
CPT/HCPCS: 71046; 72125; 96372 ×2; 99284; J2360; J1170

== ENCOUNTER 2020-05-05 19:02 | Emergency (ER) | payer OTHER ==
--- NOTE | 2020-05-05 19:51 | XR ---
EXAMINATION TYPE: XR hand complete RT DATE OF EXAM: 05/05/2020 COMPARISON: NONE HISTORY: Pain and swelling TECHNIQUE: 3 views FINDINGS: Metacarpals are intact. I see no fracture nor dislocation. Joint spaces are fairly normal. The ring finger appears intact. IMPRESSION: Negative right hand exam. No fracture.
[2020-05-05] MEDS ORDERED: ACET/COD 300 MG/30 MG STARTER PACK 6 TAB BTL PO STA (20:47)
--- NOTE | 2020-05-05 20:47 | ED ---
General Adult HPI - General Chief complaint: Extremity Injury, Upper Stated complaint: rt hand pain, cannot bend fingers Time Seen by Provider: 05/05/20 19:28 Source: patient, RN notes reviewed, old records reviewed Mode of arrival: ambulatory Limitations: no limitations - History of Present Illness Initial comments: 49-year-old female patient presents to ED for chief complaint of injury to fourth digit on right hand. Patient reports that she was picking up a box and the box slipped and pulled on the fourth digit of her right hand. Patient is having pain and swelling distal to MCP joint. Denies any complaints. Denies any penetrating trauma or any laceration. Systemic: Pt denies fatigue, fever/chills, rash. Pt denies weakness, night sweats, weight loss. Neuro: Pt denies headache, visual disturbances, syncope or pre-syncope. HEENT: Pt denies ocular discharge or irritation, otalgia, rhinorrhea, pharyngitis or notable lymphadenopathy. Cardiopulmonary: Pt denies chest pain, SOB, heart palpitations, dyspnea on exertion. Abdominal/GI: Pt denies abdominal pain, n/v/d. : Pt denies dysuria, burning w/ urination, frequency/urgency. Denies new onset urinary or bowel incontinence. Neuro: Pt denies new onset weakness, paresthesias. - Related Data Home Medications Medication Instructions Recorded Confirmed Albuterol Inhaler (Mhu) [Ventolin 1 puff INHALATION Q6HR PRN 05/13/14 04/19/19 Hfa Inhaler (Mhu)] Albuterol Nebulized [Ventolin 2.5 mg INHALATION Q6HR PRN 05/13/14 04/19/19 Nebulized] Dextroamphetamine/Amphetamine 20 mg PO BID 05/13/14 04/19/19 [Adderall] Ondansetron [Zofran] 4 mg PO Q12HR PRN 08/15/18 04/19/19 Ergocalciferol (Vitamin D2) 50,000 unit PO WE 10/04/18 04/19/19 [Vitamin D2] Pregabalin [Lyrica] 25 mg PO TID 10/04/18 04/19/19 Amitriptyline HCl [Elavil] 50 mg PO HS 04/19/19 04/19/19 Cyclobenzaprine [Flexeril] 5 - 10 mg PO HS 04/19/19 04/19/19 Loratadine [Claritin] 10 mg PO DAILY 04/19/19 04/19/19 Omeprazole 40 mg PO DAILY 04/19/19 04/19/19 Previous Rx's Medication Instructions Recorded Ibuprofen [Motrin] 600 mg PO Q8HR PRN #30 tab 01/20/20 Orphenadrine [Norflex] 100 mg PO Q12H #14 tablet.er 01/20/20 predniSONE 50 mg PO DAILY #5 tab 01/20/20 Cyclobenzaprine [Flexeril] 10 mg PO TID PRN #12 tablet 04/13/20 Ibuprofen [Motrin] 600 mg PO Q6HR PRN #20 tab 04/13/20 Allergies Allergy/AdvReac Type Severity Reaction Status Date / Time duloxetine [From Cymbalta] Allergy skin got Verified 05/05/20 19:15 red and itchy, nausea Review of Systems ROS Statement: Those systems with pertinent positive or pertinent negative responses have been documented in the HPI. ROS Other: All systems not noted in ROS Statement are negative. Past Medical History Past Medical History: Asthma, Fibromyalgia, GERD/Reflux, Hypertension, Osteoarthritis (OA), Pneumonia Additional Past Medical History / Comment(s): hx KIDNEY STONES, Migraines, Past RX for BP-none currently, chronic bronchitis, Hiatal Hernia, IBS, Gastritis, Esophagitis, SCOLIOSIS, History of Any Multi-Drug Resistant Organisms: MRSA Date of last positivie culture/infection: 04/2018 MDRO Source:: HX MRSA STOMACH, HEAD AND JAW, GROIN - LAST 04/2018 Past Surgical History: Cholecystectomy, Hysterectomy, Orthopedic Surgery, Tubal Ligation Additional Past Surgical History / Comment(s): Several surgery for endometriosis, Rt knee arthroscopy x 2, lt knee arthroscopy, Cyst removed from jaw, Rt shoulder rotator cuff, MULT PAIN PROC, Past Anesthesia/Blood Transfusion Reactions: Motion Sickness Additional Past Anesthesia/Blood Transfusion Reaction / Comment(s): . Past Psychological History: ADD/ADHD, Anxiety, PTSD Smoking Status: Current some day smoker Past Alcohol Use History: None Reported Past Drug Use History: None Reported - Past Family History Mother Family Medical History: No Reported History Father Family Medical History: Cancer General Exam - General Exam Comments Initial Comments: Constitutional: NAD, AOX3, Pt has pleasant affect. HEENT: NC/AT, trachea midline, neck supple, no lymphadenopathy. Posterior pharynx non erythematous, without exudates. External ears appear normal, without discharge. Mucous membranes moist. Eyes PERRLA, EOM intact. There is no scleral icterus. No pallor noted. Cardiopulmonary: RRR, no murmurs, rubs or gallops, no JVD noted. Lungs CTAB in anterior and posterior blum. No peripheral edema. Abdominal exam: Abdomen soft and non-distended. Abdomen non-tender to palpation in all 4 quadrants. Bowel sounds active in LLQ. No hepatosplenomegaly. No ecchymosis Neuro: CN II-XII grossly intact. No nuchal rigidity. No raccon eyes, no claros sign, no hemotympanum. No cervical spinal tenderness. MSK: Swelling tenderness palmar and dorsal to the MCP joint fourth digit of right hand. Range of motion is limited secondary to swelling and pain. Patient is a tenderness at the PIP joint and the DIP joint. Neurovascularly intact and capillary refill less than 2 seconds. Limitations: no limitations Course Vital Signs 05/05/20 19:12 Temperature 98.5 F Pulse Rate 69 Respiratory 16 Rate Blood Pressure 118/67 O2 Sat by Pulse 100 Oximetry Medical Decision Making - Medical Decision Making 49-year-old female patient with fever evaluation of finger injury. Patient was picking up a box when it slipped and pulled on the fourth digit of her right hand. Patient bowel sounds are stable, afebrile. Physical exam doesn't display swelling and tenderness to the finger distal to the MCP joint. Neurovascularly intact. No MCP joint tenderness or any other hand tenderness. Full active range of motion and otherwise. Plain films are negative. Patient placed in straight finger splint will be discharged with outpatient orthopedic follow-up case discussed with Dr. Hall. Disposition Clinical Impression: Finger sprain Disposition: HOME SELF-CARE Condition: Stable Instructions (If sedation given, give patient instructions): Finger Sprain (ED) Additional Instructions: Continue to wear straight finger splint. Follow up with primary care provider and orthopedic doctor tomorrow. Return to ER if condition worsens. Is patient prescribed a controlled substance at d/c from ED?: No Referrals: Pam Howard, [Primary Care Provider] - 1-2 days Jose Carreno PAC [PHYSICIAN [employer] RECE[facility]] - 1-2 days
[2020-05-05 21:00] VITALS: BP 110/78; PULSE 88; RESP 18; TEMP 98.4
== END 2020-05-05 20:59 | disposition home or self-care (01) ==
LOC: EC 19:02
DX: S63.654A Sprain of metacarpophalangeal joint of right ring finger, initial encounter (principal); J45.909 Unspecified asthma, uncomplicated; F90.9 Attention-deficit hyperactivity disorder, unspecified type; F41.9 Anxiety disorder, unspecified; F43.10 Post-traumatic stress disorder, unspecified; K21.9 Gastro-esophageal reflux disease without esophagitis; I10 Essential (primary) hypertension; M79.7 Fibromyalgia; M19.90 Unspecified osteoarthritis, unspecified site; F17.200 Nicotine dependence, unspecified, uncomplicated; Z88.8 Allergy status to other drugs, medicaments and biological substances; Z79.899 Other long term (current) drug therapy; Z80.9 Family history of malignant neoplasm, unspecified; Z86.14 Personal history of Methicillin resistant Staphylococcus aureus infection; Z90.49 Acquired absence of other specified parts of digestive tract; Z90.710 Acquired absence of both cervix and uterus; W20.8XXA Other cause of strike by thrown, projected or falling object, initial encounter; Y93.89 Activity, other specified
CPT/HCPCS: 99284

== ENCOUNTER 2020-06-28 21:36 | Emergency (ER) | payer OTHER ==
[2020-06-28 21:46] VITALS: BP 135/82; PULSE 91; RESP 20; TEMP 98.3
[2020-06-28] MEDS ORDERED: KETOROLAC 30 MG/ML 1 ML VIAL IM STA (21:50)
--- NOTE | 2020-06-28 21:54 | ED ---
General Adult HPI - General Chief complaint: Extremity Injury, Upper Stated complaint: LT shoulder Time Seen by Provider: 06/28/20 21:47 Source: patient, RN notes reviewed Mode of arrival: ambulatory Limitations: no limitations - History of Present Illness Initial comments: 49-year-old female with a past medical history of asthma, fibromyalgia, GERD, hy pertension, migraines presents to the emergency department for left shoulder pain. Patient states she was walking down a couple stairs when her stair broke and she fell onto her left shoulder. States it has been painful to move since that time. Pain worsened yesterday. Patient states she has dislocated that shoulder in the past. States any movement of the left shoulder exacerbates her symptoms. Patient did not hit her head when she fell and denied any other injuries. Patient does not take blood thinners.Patient has no other complaints at this time including shortness of breath, chest pain, abdominal pain, nausea or vomiting, headache, or visual changes. - Related Data Home Medications Medication Instructions Recorded Confirmed Albuterol Inhaler (Mhu) [Ventolin 1 puff INHALATION Q6HR PRN 05/13/14 04/19/19 Hfa Inhaler (Mhu)] Albuterol Nebulized [Ventolin 2.5 mg INHALATION Q6HR PRN 05/13/14 04/19/19 Nebulized] Dextroamphetamine/Amphetamine 20 mg PO BID 05/13/14 04/19/19 [Adderall] Ondansetron [Zofran] 4 mg PO Q12HR PRN 08/15/18 04/19/19 Ergocalciferol (Vitamin D2) 50,000 unit PO WE 10/04/18 04/19/19 [Vitamin D2] Pregabalin [Lyrica] 25 mg PO TID 10/04/18 04/19/19 Amitriptyline HCl [Elavil] 50 mg PO HS 04/19/19 04/19/19 Cyclobenzaprine [Flexeril] 5 - 10 mg PO HS 04/19/19 04/19/19 Loratadine [Claritin] 10 mg PO DAILY 04/19/19 04/19/19 Omeprazole 40 mg PO DAILY 04/19/19 04/19/19 Previous Rx's Medication Instructions Recorded Ibuprofen [Motrin] 600 mg PO Q8HR PRN #30 tab 01/20/20 Orphenadrine [Norflex] 100 mg PO Q12H #14 tablet.er 01/20/20 predniSONE 50 mg PO DAILY #5 tab 01/20/20 Cyclobenzaprine [Flexeril] 10 mg PO TID PRN #12 tablet 04/13/20 Ibuprofen [Motrin] 600 mg PO Q6HR PRN #20 tab 04/13/20 Allergies Allergy/AdvReac Type Severity Reaction Status Date / Time duloxetine [From Cymbalta] Allergy skin got Verified 06/28/20 21:45 red and itchy, nausea Review of Systems ROS Statement: Those systems with pertinent positive or pertinent negative responses have been documented in the HPI. ROS Other: All systems not noted in ROS Statement are negative. Past Medical History Past Medical History: Asthma, Fibromyalgia, GERD/Reflux, Hypertension, Osteoarthritis (OA), Pneumonia Additional Past Medical History / Comment(s): hx KIDNEY STONES, Migraines, Past RX for BP-none currently, chronic bronchitis, Hiatal Hernia, IBS, Gastritis, Esophagitis, SCOLIOSIS, History of Any Multi-Drug Resistant Organisms: MRSA Date of last positivie culture/infection: 04/2018 MDRO Source:: HX MRSA STOMACH, HEAD AND JAW, GROIN - LAST 04/2018 Past Surgical History: Cholecystectomy, Hysterectomy, Orthopedic Surgery, Tubal Ligation Additional Past Surgical History / Comment(s): Several surgery for endometriosis, Rt knee arthroscopy x 2, lt knee arthroscopy, Cyst removed from jaw, Rt shoulder rotator cuff, MULT PAIN PROC, Past Anesthesia/Blood Transfusion Reactions: Motion Sickness Additional Past Anesthesia/Blood Transfusion Reaction / Comment(s): . Past Psychological History: ADD/ADHD, Anxiety, PTSD Smoking Status: Never smoker Past Alcohol Use History: None Reported Past Drug Use History: None Reported - Past Family History Mother Family Medical History: No Reported History Father Family Medical History: Cancer General Exam Limitations: no limitations General appearance: alert, in no apparent distress Head exam: Present: atraumatic, normocephalic, normal inspection Eye exam: Present: normal appearance, PERRL, EOMI. Absent: scleral icterus, conjunctival injection, periorbital swelling ENT exam: Present: normal exam, mucous membranes moist Neck exam: Present: normal inspection, full ROM. Absent: tenderness, meningismus, lymphadenopathy Respiratory exam: Present: normal lung sounds bilaterally. Absent: respiratory distress, wheezes, rales, rhonchi, stridor Cardiovascular Exam: Present: regular rate, normal rhythm, normal heart sounds. Absent: systolic murmur, diastolic murmur, rubs, gallop, clicks Extremities exam: Present: tenderness (tenderness noted to the generalized left shoulder.), normal capillary refill (capillary refill less than 2 seconds, rad ial pulse 2+ in the left upper extremity.). Absent: full ROM (patient has about 15 degrees flexion and abduction of the left shoulder.), other (no erythema noted of the L shoulder. No edema of the left upper extremity.) Course Vital Signs 06/28/20 21:42 Temperature 98.3 F Pulse Rate 91 Respiratory 20 Rate Blood Pressure 135/82 O2 Sat by Pulse 99 Oximetry Medical Decision Making - Medical Decision Making HPI and physical exam as documented. in summary patient presents for left shoulder pain after a fall 2 days ago. Neurovascularly intact in the left upper extremity. Very limited range of motion secondary to pain. X-ray of the left shoulder is negative.patient was given Toradol and had significant improvement in pain. Patient will be discharged home to follow up with orthopedics. Patient is already [facility] with [facility] and will call tomorrow.. She'll return here for any worsening symptoms. Disposition Clinical Impression: Shoulder pain Disposition: HOME SELF-CARE Condition: Good Additional Instructions: please take Motrin and Tylenol for pain. Do range of motion exercises of the left shoulder. Follow-up with your orthopedic physician as you are already an established patient. Return here to the emergency room should you have any worsening symptoms. Is patient prescribed a controlled substance at d/c from ED?: No Referrals: Pam Howard DO [Primary Care Provider] - 1-2 days Time of Disposition: 22:33
--- NOTE | 2020-06-28 22:06 | XR ---
EXAMINATION TYPE: XR shoulder complete LT DATE OF EXAM: 06/28/2020 COMPARISON: NONE HISTORY: Shoulder pain TECHNIQUE: 3 views FINDINGS: There is no sign of fracture nor dislocation. Joint spaces are normal. There are no patholo gic calcifications. IMPRESSION: Negative left shoulder exam.
== END 2020-06-28 22:44 | disposition home or self-care (01) ==
LOC: EC 21:36
DX: M25.512 Pain in left shoulder (principal); J45.909 Unspecified asthma, uncomplicated; F90.9 Attention-deficit hyperactivity disorder, unspecified type; M79.7 Fibromyalgia; F41.9 Anxiety disorder, unspecified; K58.9 Irritable bowel syndrome, unspecified; F43.10 Post-traumatic stress disorder, unspecified; G43.909 Migraine, unspecified, not intractable, without status migrainosus; K44.9 Diaphragmatic hernia without obstruction or gangrene; K21.9 Gastro-esophageal reflux disease without esophagitis; Z79.899 Other long term (current) drug therapy; Z88.8 Allergy status to other drugs, medicaments and biological substances; Z87.442 Personal history of urinary calculi; W10.9XXA Fall (on) (from) unspecified stairs and steps, initial encounter; Y93.01 Activity, walking, marching and hiking; Y92.009 Unspecified place in unspecified non-institutional (private) residence as the place of occurrence of the external cause
CPT/HCPCS: 73030; 99283; 96372; J1885

== ENCOUNTER → 2020-07-10 | Outpatient (CLI) | payer OTHER ==
[2020-07-10 14:22] LABS: Basophils % (A) 1 %; Eosinophils # (A) 0.2 k/uL (0-0.7); Eosinophils % (A) 2 %; HCT 40.9 % (34.0-46.0); HGB 12.8 gm/dL (11.4-16.0); Lymphocytes # (A) 2.2 k/uL (1.0-4.8); Lymphocytes % (A) 28 %; MCH 25.5 pg (25.0-35.0); MCHC 31.4 g/dL (31.0-37.0); MCV 81.3 fL (80.0-100.0); Mean Platelet Volume 5.9; Monocytes # (A) 0.4 k/uL (0-1.0); Monocytes % (A) 5 %; Neutrophils % (A) 63 %; Platelet Count 432 k/uL (150-450); RBC 5.03 m/uL (3.80-5.40); RDW 14.3 % (11.5-15.5)
[2020-07-10 20:08] LABS: African American GFR (CKD) 88.2 (60.0-200.0); Albumin/Globulin Ratio 1.38 (1.60-3.17); Anion Gap 7.1 mmol/L (4.00-12.00); BUN/Creat Ratio 17.78 Ratio (12.00-20.00); Calcium 9.3 mg/dL (8.7-10.3); Carbon Dioxide 26.9 mmol/L (21.6-31.8); Globulin 2.9 g/dL (1.6-3.3); Non-African American GFR(CKD) 76.1 (60.0-200.0); Potassium 4.2 mmol/L (3.5-5.5); Total Bilirubin 0.4 mg/dL (0.3-1.2); Total Protein 6.9 g/dL (6.2-8.2)
[2020-07-10 21:07] LABS: DNA Double-Stranded NEGATIVE (NEGATIVE)
== END | disposition home or self-care (01) ==
LOC: LABWHC1 13:50
PROVIDERS: ATTEND Psychiatry & Neurology Neurology
DX: M13.0 Polyarthritis, unspecified (principal)
CPT/HCPCS: 36415; 80053; 82306; 82607; 84207; 85025; 86225; 86334; 86431

== ENCOUNTER → 2020-09-07 | Outpatient (CLI) | payer OTHER ==
--- NOTE | 2020-09-08 19:52 | CT ---
EXAMINATION TYPE: CT thoracic spine wo con DATE OF EXAM: 09/07/2020 COMPARISON: None HISTORY: Abn MRI, loss of function on Lt side, numbness and tingling CT DLP: 923.2 mGycm Automated exposure control for dose reduction was used. FINDINGS: There is exaggeration of the thoracic kyphosis. Hemangioma is within a mid thoracic vertebral level. No spinal canal stenosis is present. Disc heights appear preserved. Vertebral body heights are preser zack. IMPRESSION: 1. NO SUSPICIOUS ACUTE CHANGES. 2. EXAGGERATION OF THORACIC KYPHOSIS. 3. HEMANGIOMA MIDTHORACIC SPINE.
== END | disposition home or self-care (01) ==
LOC: RADCTMAIN 07:21
PROVIDERS: ATTEND Psychiatry & Neurology Neurology
DX: D18.09 Hemangioma of other sites (principal); M40.294 Other kyphosis, thoracic region; Z88.8 Allergy status to other drugs, medicaments and biological substances
CPT/HCPCS: 72128

== ENCOUNTER 2021-01-29 09:52 | Emergency (ER) | payer OTHER ==
[2021-01-29 09:56] VITALS: TEMP 98.1
[2021-01-29] MEDS ORDERED: MECLIZINE 12.5 MG TAB PO STA (10:18)
--- NOTE | 2021-01-29 11:00 | CT ---
EXAMINATION TYPE: CT brain cspine wo con DATE OF EXAM: 01/29/2021 COMPARISON: CT brain December 20, 2017. CT cervical spine April 13, 2020. HISTORY: Fall injury with headache and neck pain. CT DLP: 1423.5 mGycm. Automated Exposure Control for Dose Reduction was Utilized. TECHNIQUE: CT scan of the head and cervical spine are performed without contrast. FINDINGS: There is no acute intracranial hemorrhage, mass effect, or midline shift identified. The ventricles and sulci are within normal limits in size. Rodriguez-white matter differentiation is maintain ed. New patchy opacification and mucosal thickening in the right sphenoid sinus and right ethmoid sin uses. Mild to Moderate mucosal thickening in the right maxillary sinus. The calvarium is intact. Glob es are intact bilaterally. Cervical spine is visualized in its entirety from C1 through upper thoracic levels and demonstrates s table and straightened alignment without evidence of acute fracture or dislocation. Prevertebral sof t tissue appears within normal limits. The C1-C2 articulation redemonstrates unfused tiny tip of den s coronal image 35 stable from prior. Vertebral body heights and disc space heights are maintained. S kalyn canal preserved. Axial images unremarkable. Thyroid gland remains within normal limits. No pneu mothorax in the upper lungs. IMPRESSION: 1. There is no acute fracture or dislocation evident in the cervical spine. 2. No acute intracranial hemorrhage or midline shift is seen. New right-sided paranasal sinus disease incidentally noted.
--- NOTE | 2021-01-29 11:08 | ED ---
Fall HPI - General Chief Complaint: Fall Stated Complaint: Fall Time Seen by Provider: 01/29/21 10:06 Source: patient, RN notes reviewed Mode of arrival: wheelchair Limitations: no limitations - History of Present Illness Initial Comments: 50-year-old female presents emergency Department with chief complaint of fall. Patient states she slipped and fell on some stairs. Patient went head neck pain. Chest was right foot pain after she dropped a flashlight on it. Patient has a blood thinner states that she has some mild headache and dizziness curren tly. No chest pain or shortness of breath. Patient was not dizzy prior to her fall. Patient does admit that she has a bad neck states that she's been receiving injections. Denies any known bleeding. No lacerations. Patient states that she is unsure if she lost consciousness. Patient does not believe she did. - Related Data Home Medications Medication Instructions Recorded Confirmed Albuterol Nebulized [Ventolin 2.5 mg INHALATION Q6HR PRN 05/13/14 01/27/21 Nebulized] Dextroamphetamine/Amphetamine 20 mg PO BID 05/13/14 01/27/21 [Adderall] Ondansetron [Zofran] 4 mg PO Q4H PRN 08/15/18 01/27/21 Ergocalciferol (Vitamin D2) 50,000 unit PO WE 10/04/18 01/27/21 [Vitamin D2] Loratadine [Claritin] 10 mg PO DAILY 04/19/19 01/27/21 Omeprazole 40 mg PO BID 04/19/19 01/27/21 Airborne Vitamin C 1 tab PO DAILY 01/15/21 01/27/21 Albuterol Sulfate [Proair Hfa] 2 puff INHALATION Q4H PRN 01/15/21 01/27/21 Albuterol Sulfate [Ventolin HFA] 2 puff INHALATION Q6H 01/15/21 01/27/21 Fluticasone Nasal [place] [Flonase 2 spr EA NOSTRIL DAILY 01/15/21 01/27/21 Nasal [place]] Linaclotide [Linzess] 290 mcg PO DAILY 01/15/21 01/27/21 Oxybutynin Chloride [Ditropan XL] 10 mg PO DAILY 01/15/21 01/27/21 Topiramate [Trokendi Xr] 100 mg PO DAILY 01/15/21 01/27/21 tiZANidine HCL [Zanaflex] 4 mg PO BID 01/15/21 01/27/21 valACYclovir HCL 1,000 mg PO BID 01/15/21 01/27/21 Allergies Allergy/AdvReac Type Severity Reaction Status Date / Time No Known Allergies Allergy Verified 01/27/21 11:22 Review of Systems ROS Statement: Those systems with pertinent positive or pertinent negative responses have been documented in the HPI. ROS Other: All systems not noted in ROS Statement are negative. Past Medical History Past Medical History: Asthma, Fibromyalgia, GERD/Reflux, Hypertension, Osteoa rthritis (OA), Pneumonia Additional Past Medical History / Comment(s): hx KIDNEY STONES, Migraines, Past RX for BP-none currently, chronic bronchitis, Hiatal Hernia, IBS, Gastritis, Esophagitis, SCOLIOSIS, recent URI infection treated with antibiotics, will be done with antibiotics 01/29/21 History of Any Multi-Drug Resistant Organisms: MRSA Date of last positivie culture/infection: 04/2018 MDRO Source:: HX MRSA STOMACH, HEAD AND JAW, GROIN - LAST 04/2018 Past Surgical History: Cholecystectomy, Hysterectomy, Orthopedic Surgery, Tubal Ligation Additional Past Surgical History / Comment(s): Several surgery for endometriosis, Rt knee arthroscopy x 2, lt knee arthroscopy, Cyst removed from jaw, Rt shoulder rotator cuff, MULT PAIN PROC, 2 tubal pregnancies Past Anesthesia/Blood Transfusion Reactions: No Reported Reaction Additional Past Anesthesia/Blood Transfusion Reaction / Comment(s): severe asthma attack when coming out of anesthesia with shoulder surgery Past Psychological History: ADD/ADHD, Anxiety, PTSD Smoking Status: Never smoker Past Alcohol Use History: Occasional Past Drug Use History: None Reported - Past Family History Mother Family Medical History: No Reported History Father Family Medical History: Cancer General Exam Limitations: no limitations General appearance: alert, in no apparent distress Head exam: Present: atraumatic, normocephalic, normal inspection Eye exam: Present: normal appearance, PERRL, EOMI. Absent: scleral icterus, conjunctival injection, periorbital swelling ENT exam: Present: normal exam, mucous membranes moist Neck exam: Present: normal inspection. Absent: tenderness, meningismus, full RO M (Patient in c-collar), lymphadenopathy Respiratory exam: Present: normal lung sounds bilaterally. Absent: respiratory distress, wheezes, rales, rhonchi, stridor Cardiovascular Exam: Present: regular rate, normal rhythm, normal heart sounds. Absent: systolic murmur, diastolic murmur, rubs, gallop, clicks Extremities exam: Present: other (Tenderness over the right foot there is moderate ecchymosis that is tender neurovascular intact full range of motion no other extremity injuries) Back exam: Present: normal inspection, full ROM. Absent: tenderness Neurological exam: Present: alert, oriented X3, CN II-XII intact, reflexes normal. Absent: motor sensory deficit Skin exam: Present: warm, dry, intact, normal color. Absent: rash Course Vital Signs 01/29/21 01/29/21 01/29/21 09:52 10:56 11:00 Temperature 98.1 F Pulse Rate 101 H 89 89 Respiratory 16 18 18 Rate Blood Pressure 145/77 121/88 121/88 O2 Sat by Pulse 99 99 99 Oximetry Medical Decision Making - Medical Decision Making 50-year-old presented for a fall CT her brain and C-spine is unremarkable other than new paranasal disease. Patient is currently on advice. Patient x-ray of the foot is negative. Patient be discharged in stable condition return parameters were discussed. Disposition Clinical Impression: Fall, Head injury, Contusion of right foot Disposition: HOME SELF-CARE Condition: Stable Instructions (If sedation given, give patient instructions): Head Injury (ED) Additional Instructions: Please return to the Emergency Department if symptoms worsen or any other concerns. Is patient prescribed a controlled substance at d/c from ED?: No Referrals: Pam Howard DO [Primary Care Provider] - 1-2 days Time of Disposition: 11:41
--- NOTE | 2021-01-29 11:30 | XR ---
EXAMINATION TYPE: XR foot complete RT DATE OF EXAM: 01/29/2021 CLINICAL HISTORY: Injury with pain TECHNIQUE: Frontal, lateral, and oblique images of the right foot are obtained. COMPARISON: Right foot x-ray July 26, 2013. FINDINGS: There is no acute fracture/dislocation evident in the right foot. The joint spaces in the right foot appear within normal limits. [id number]-ah-[id number] sized inferior calcaneal spur redemonstrat ed. The overlying soft tissue appears unremarkable. IMPRESSION: There is no acute fracture or dislocation in the right foot. No significant change from prior.
[2021-01-29 11:38] VITALS: RESP 18
[2021-01-29 11:53] VITALS: BP 128/78; PULSE 70
== END 2021-01-29 11:53 | disposition home or self-care (01) ==
LOC: EC 09:52
DX: S90.31XA Contusion of right foot, initial encounter (principal); S09.90XA Unspecified injury of head, initial encounter; M79.7 Fibromyalgia; K58.9 Irritable bowel syndrome, unspecified; M19.90 Unspecified osteoarthritis, unspecified site; J44.9 Chronic obstructive pulmonary disease, unspecified; I10 Essential (primary) hypertension; W10.9XXA Fall (on) (from) unspecified stairs and steps, initial encounter; Z86.14 Personal history of Methicillin resistant Staphylococcus aureus infection; Z90.49 Acquired absence of other specified parts of digestive tract; Z90.710 Acquired absence of both cervix and uterus; Z98.51 Tubal ligation status
CPT/HCPCS: 70450; 72125; 99284

== ENCOUNTER 2021-02-01 07:52 | Day surgery (SDC) | payer OTHER ==
[2021-01-27 12:45] VITALS: BMI 19.3
[~2021-02-01 07:52] MED LIST changes: +LIDOCAINE 1% (10MG/ML) FOR IV START INTRADERMA PRN; -LIDOCAINE 1% 20 ML VIAL (10MG/ML) FOR IV START INTRADERMA PRN
[2021-02-01 08:18] VITALS: TEMP 97.5
[2021-02-01] MEDS ORDERED: LACTATED RINGERS 1,000 ML IV ONE (08:20)
[2021-02-01] MEDS ORDERED: MIDAZOLAM 2 MG/2 ML VIAL ONE (09:20)
[2021-02-01] MEDS ORDERED: fentaNYL (PF) 50 MCG/ML 2 ML AMP ONE (09:20)
[2021-02-01] MEDS ORDERED: LIDOCAINE 1% INJ 10MG/ML (20 ML MDV) ONE (09:20)
[2021-02-01] MEDS ORDERED: PROPOFOL 10 MG/ML 20 ML VIAL IV ONE (09:20)
--- NOTE | 2021-02-01 10:05 | P.PCN ---
Date of Procedure: 02/01/21 Description of Procedure: Brief history: Patient is a 50-year-old female presenting for outpatient esophagogastroduodenoscopy and colonoscopy for evaluation of GERD and change in bowel habits. Patient reports frequent breakthrough reflux with regurgitation. Reflux worsens with constipation. On omeprazole therapy. Patient has constipation with associated cramping and bloating. Family history of colon cancer in her paternal grandfather and paternal uncles. Procedure performed: Esophagogastroduodenoscopy with biopsy Colonoscopy Estimated blood loss: Minimal. Preoperative diagnosis: GERD, change in bowel habits, patient reports family history of colon cancer in her grandfather and uncles Anesthesia: MAC Procedure: After informed consent was obtained from the patient was brought into the endoscopy unit and IV sedation was administered by anesthesia under continuous monitoring. Initially upper endoscopy was done. The Olympus GF 190 video endoscope was inserted into the mouth and esophagus intubated without any difficulty and was gradually advanced into the stomach and duodenum and carefully examined. The bulb and second part of the duodenum appeared normal, with biopsies taken. The scope was then withdrawn into the stomach adequately insufflated with air and upon careful examination the antrum and body, cardia and fundus appeared normal, except for some erythema and nodularity in the antrum which was biopsied as well as biopsies of the body. The scope was then withdrawn into the esophagus. The GE junction was located at 36 cm to the incisors and appeared normal with biopsies taken. A small 1 cm hiatal hernia was noted. It appeared regular with no erythema erosions or ulcerations. Rest of the esophagus appeared normal. Patient tolerated the procedure well. At this time the patient continued to remain sedation. Initial digital rectal examination was normal. Olympus CF 190 video colonoscope was then inserted into the rectum and gradually advanced to the cecum without any difficulty. Careful examination was performed as the scope was gradually being withdrawn. The prep was poor with liquid and semisolid stool throughout the colon precluding complete visualization of the mucosa. The cecum, ascending colon, transverse colon, descending colon, sigmoid colon and rectum which was able to be visualized appeared normal, however poor prep was prohibitive of complete visualization of the mucosa. Retroflexion was performed in the rectum and no lesions were noted. Patient tolerated the procedure well. Impression: 1. Moderate antral gastritis. Small hiatal hernia. Biopsies of the duodenum, antrum and body and GE junction. 2. Poor prep. Visualized mucosa did appear normal however complete visualization of the the process severely limited by poor prep. Recommendations: Findings of this examination were discussed with the patient as well as her family. Okay to resume diet. Okay to resume medications. I will pathology from biopsies. Follow up in the GI clinic as scheduled. Given family history of colon cancer patient should've repeat colonoscopy in the next 3-6 months, this is her second colonoscopy with a poor prep and should be given an extended prep.
[2021-02-01 10:07] VITALS: RESP 16
[2021-02-01 10:49] VITALS: BP 96/64; PULSE 55
== END 2021-02-01 10:54 | disposition home or self-care (01) ==
LOC: ORWHC2ENDO 07:52
PROVIDERS: ATTEND Internal Medicine
DX: K29.50 Unspecified chronic gastritis without bleeding (principal); K31.89 Other diseases of stomach and duodenum; K44.9 Diaphragmatic hernia without obstruction or gangrene; K21.9 Gastro-esophageal reflux disease without esophagitis; K59.00 Constipation, unspecified; Z80.0 Family history of malignant neoplasm of digestive organs; Z79.899 Other long term (current) drug therapy
CPT/HCPCS: 88305; 88312; 88342; 45378; 43239; J2250; J2001; J3010; J2704

== ENCOUNTER → 2021-03-15 | Outpatient (CLI) | payer OTHER ==
--- NOTE | 2021-03-16 07:47 | MR ---
MRI CERVICAL SPINE: CLINICAL HISTORY: Headaches with neck pain and left-sided weakness TECHNIQUE: Multiplanar, multisequence imaging of the cervical spine is performed without IV contrast. COMPARISON: Cervical spine x-ray February 17, 2021 MRI cervical spine October 01, 2018. CT cervical spin e January 29, 2021 FINDINGS: There is some motion artifact degradation on current study. Sagittal images of the cervical spine show the craniocervical junction to remain within normal limits. The cervical and upper thora cic spinal cord remains normal in course, caliber, and signal. Vertebral alignment is stable and sat isfactory. The vertebral body and intravertebral disk heights are normal. Large hemangioma identifie d T5 vertebra similar to prior. Axial images show there is no significant focal disk disease, spinal canal stenosis, neural foraminal narrowing, or spinal cord compromise at any cervical level. IMPRESSION: No significant abnormality is seen to account for patient's clinical symptoms. No signifi cant change from prior MRI.
== END | disposition home or self-care (01) ==
LOC: RADMRIMAIN 13:15
PROVIDERS: ATTEND Orthopaedic Surgery
DX: M54.2 Cervicalgia (principal)
CPT/HCPCS: 72141

== ENCOUNTER → 2022-08-15 | Outpatient (CLI) | payer OTHER ==
--- NOTE | 2022-08-16 03:54 | MR ---
EXAMINATION TYPE: MR knee RT wo con DATE OF EXAM: 08/15/2022 COMPARISON: None HISTORY: Right knee pain, history of surgery Multiplanar multiecho imaging of the right knee performed with no contrast. The anterior and posterior cruciate ligaments are intact. There is knee joint effusion. Patella tendo n is intact. The collateral ligaments are intact. There is horizontal intrasubstance tear of the medi al aspect of the medial meniscus. The lateral meniscus appears intact. There is no evidence of a fracture. No focal bone destruction. No significant joint space narrowing. The patella is intact. There is oval-shaped 17 x 12 mm fluid signal focus in the distal femoral metap hysis posteriorly that could be benign bone cyst. The appearance is benign. There is subcutaneous beryl ma along the anterior aspect of the knee. There is small popliteal cyst that measures 3 x 1 cm. IMPRESSION: Small intrasubstance tear of the medial aspect medial meniscus. No evidence of ligamentous tear. Knee joint effusion and popliteal cyst.
== END | disposition home or self-care (01) ==
LOC: RADMRIMAIN 19:58
PROVIDERS: ATTEND Orthopaedic Surgery
DX: S83.241A Other tear of medial meniscus, current injury, right knee, initial encounter (principal); M25.461 Effusion, right knee; X58.XXXA Exposure to other specified factors, initial encounter

== ENCOUNTER 2023-05-02 09:43 | Emergency (ER) | payer OTHER ==
[2023-05-02] MEDS ORDERED: KETOROLAC 15 MG/ML 1 ML VIAL IM STA (10:17)
--- NOTE | 2023-05-02 10:20 | ED ---
General Adult HPI - General Chief complaint: Extremity Injury, Lower Stated complaint: Knee Pain Time Seen by Provider: 05/02/23 10:07 Source: patient, RN notes reviewed Mode of arrival: ambulatory Limitations: no limitations - History of Present Illness Initial comments: 52 year-old female with no significant past medical history presents the emergency department with a chief complaint of bilateral knee pain. Patient reports that she was going down the stairs yesterday when she had a pop in her right knee. Causing her to fall slowly onto bilateral knees. She reports that she has a known Vibha for meniscus in her right knee however she has been waiting to get surgery since March due to a work-related injury. She is describing the pain as a burning that is a 10.. She Has Been Taking Motrin 800s with Mild Symptomatic Relief. She Denies Hitting Her Head, Loss of Consciousness, Anticoagulant Use. - Related Data Home Medications Medication Instructions Recorded Confirmed Albuterol Nebulized [Ventolin 2.5 mg INHALATION Q6HR PRN 05/13/14 01/27/21 Nebulized] Dextroamphetamine/Amphetamine 20 mg PO BID 05/13/14 01/27/21 [Adderall] Ondansetron [Zofran] 4 mg PO Q4H PRN 08/15/18 01/27/21 Ergocalciferol (Vitamin D2) 50,000 unit PO WE 10/04/18 01/27/21 [Vitamin D2] Loratadine [Claritin] 10 mg PO DAILY 04/19/19 01/27/21 Omeprazole 40 mg PO BID 04/19/19 01/27/21 Airborne Vitamin C 1 tab PO DAILY 01/15/21 01/27/21 Albuterol Sulfate [Proair Hfa] 2 puff INHALATION Q4H PRN 01/15/21 01/27/21 Albuterol Sulfate [Ventolin HFA] 2 puff INHALATION Q6H 01/15/21 01/27/21 Fluticasone Nasal [place] [Flonase 2 spr EA NOSTRIL DAILY 01/15/21 01/27/21 Nasal [place]] Linaclotide [Linzess] 290 mcg PO DAILY 01/15/21 01/27/21 Topiramate [Trokendi Xr] 100 mg PO DAILY 01/15/21 01/27/21 oxyBUTYnin chloride [Ditropan XL] 10 mg PO DAILY 01/15/21 01/27/21 tiZANidine HCL [Zanaflex] 4 mg PO BID 01/15/21 01/27/21 valACYclovir HCL [Valacyclovir] 1,000 mg PO BID 01/15/21 01/27/21 Allergies Allergy/AdvReac Type Severity Reaction Status Date / Time No Known Allergies Allergy Verified 05/02/23 09:48 Review of Systems ROS Statement: Those systems with pertinent positive or pertinent negative responses have been documented in the HPI. ROS Other: All systems not noted in ROS Statement are negative. Past Medical History Past Medical History: Asthma, Fibromyalgia, GERD/Reflux, Hypertension, Osteoarthritis (OA), Pneumonia Additional Past Medical History / Comment(s): hx KIDNEY STONES, Migraines, Past RX for BP-none currently, chronic bronchitis, Hiatal Hernia, IBS, Gastritis, Esophagitis, SCOLIOSIS, recent URI infection treated with antibiotics, will be done with antibiotics 01/29/21 History of Any Multi-Drug Resistant Organisms: MRSA Date of last positivie culture/infection: 04/2018 MDRO Source:: HX MRSA STOMACH, HEAD AND JAW, GROIN - LAST 04/2018 Past Surgical History: Cholecystectomy, Hysterectomy, Orthopedic Surgery, Tubal Ligation Additional Past Surgical History / Comment(s): Several surgery for endometriosis, Rt knee arthroscopy x 2, lt knee arthroscopy, Cyst removed from jaw, Rt shoulder rotator cuff, MULT PAIN PROC, 2 tubal pregnancies Past Anesthesia/Blood Transfusion Reactions: No Reported Reaction Additional Past Anesthesia/Blood Transfusion Reaction / Comment(s): severe asthma attack when coming out of anesthesia with shoulder surgery Past Psychological History: ADD/ADHD, Anxiety, PTSD Smoking Status: Never smoker Past Alcohol Use History: Occasional Past Drug Use History: None Reported - Past Family History Mother Family Medical History: No Reported History Father Family Medical History: Cancer General Exam - General Exam Comments Initial Comments: General: Alert, in no acute distress Head: atraumatic normocephalic. Eyes PERRL, EOMI intact, mucous membranes moist Respiratory: Lungs clear to auscultation bilaterally Cardiovascular: Rate regular rate and rhythm Abdominal: Soft without guarding or rebound Extremities: Normal inspection with full range of motion and normal capillary refill, bilateral knees without market swelling or erythema. Limited range of motion secondary to pain. 5 out of 5 strength. 2+ DP/PT pulses bilaterally Neuroogic: alert and oriented 3, CN II-XII intact, able to ambulate with steady gait Skin: warm dry and intact with normal color Limitations: no limitations Course Vital Signs 05/02/23 09:45 Temperature 98.2 F Pulse Rate 90 Respiratory 20 Rate Blood Pressure 122/75 O2 Sat by Pulse 99 Oximetry Medical Decision Making - Medical Decision Making Was pt. sent in by a medical professional or institution (PABLO Franklin, [employer] TEAM MEMBER, urgent care, hospital, or fpc...) When possible be specific @ -[No] Did you speak to anyone other than the patient for history (EMS, parent, family, police, friend...)? What history was obtained from this source @ -[No] Did you review nursing and triage notes (agree or disagree)? Why? @ -[I reviewed and agree with nursing and triage notes] Were old charts reviewed (outside hosp., previous admission, EMS record, old EKG, old radiological studies, urgent care reports/EKG's, fpc records)? Report findings @ -[No old charts were reviewed] Differential Diagnosis (chest pain, altered mental status, abdominal pain women, abdominal pain men, vaginal bleeding, weakness, fever, dyspnea, syncope, headache, dizziness, GI bleed, back pain, seizure, CVA, palpatations, mental health, musculoskeletal)? @ -[not applicable] EKG interpreted by me (3pts min.). @ -[As above] X-rays interpreted by me (1pt min.). @ -bilateral knee x-ray negative for any evidence of acute fracture dislocation there is a small joint effusion on the left. CT interpreted by me (1pt min.). @ -[None done] U/S interpreted by me (1pt. min.). @ -[None done] What testing was considered but not performed or refused? (CT, X-rays, U/S, labs)? Why? @ -[None] What meds were considered but not given or refused? Why? @ -[None] Did you discuss the management of the patient with other professionals (professionals i.e. PABLO Frnaklin, [employer]ICE TEAM MEMBER, lab, RT, psych nurse, mental health social worker, cloth folder machine, teacher, ski patrol officer, family preservation caseworker)? Give summary @ -[No] Was smoking cessation discussed for >3mins.? @ -[No] Was critical care preformed (if so, how long)? @ -[No] Were there social determinants of health that impacted care today? How? (Homelessness, low income, unemployed, alcoholism, drug addiction, transportation, low edu. Level, literacy, decrease access to med. care, custodial, rehab)? @ -[No] Was there de-escalation of care discussed even if they declined (Discuss DNR or withdrawal of care, Hospice)? DNR status @ -[No] What co-morbidities impacted this encounter? (DM, HTN, Smoking, COPD, CAD, Cancer, CVA, ARF, Chemo, Hep., AIDS, mental health diagnosis, sleep apnea, morbid obesity)? @ -[None] Was patient admitted / discharged? Hospital course, mention meds given and route , prescriptions, significant lab abnormalities, going to OR and other pertinent info. @ -Discharge. This is a 52-year-old female who presents the emergency department with bilateral knee pain. Patient had a thorough history and physical exam performed while in the ED. Physical exam reveals bilateral knees without significant redness, edema or ecchymosis. Limited range of motion secondary to pain. 5/5 strength. Patient able tingling with a steady gait. 2+ DP/PT pulses. Patient had imaging performed which was negative I discussed the results in detail with the patient verbalized understanding and all questions were addressed. patient was given Toradol with symptomatic relief in the ED. Return precautions were discussed at length. Patient will be discharged in stable condition. Case discussed with ARMANI Gibbons who agrees with plan of care. Undiagnosed new problem with uncertain prognosis? @ -[No] Drug Therapy requiring intensive monitoring for toxicity (Heparin, Nitro, Insulin, Cardizem)? @ -[No] Were any procedures done? @ -[No] Diagnosis/symptom? @ -Bilateral Knee Pain Acute, or Chronic, or Acute on Chronic? @ -Acute Uncomplicated (without systemic symptoms) or Complicated (systemic symptoms)? @ -Uncomplicated Side effects of treatment? @ -[No] Exacerbation, Progression, or Severe Exacerbation? @ -[No] Poses a threat to life or bodily function? How? (Chest pain, [place], [place], pneumonia, PE, COPD, DKA, ARF, appy, cholecystitis, CVA, Diverticulitis, Homicidal, Suicidal, threat to staff... and all critical care pts) @ Low likelihood Disposition Clinical Impression: Knee pain Disposition: HOME SELF-CARE Condition: Stable Instructions (If sedation given, give patient instructions): Knee Sprain (ED) Additional Instructions: please return to the nearest emergency department if symptoms worsen or persist Is patient prescribed a controlled substance at d/c from ED?: No Referrals: Pam Howard DO [Primary Care Provider] - 1-2 days Curly Domínguez DO [Doctor of Osteopathic Medicine] - 1-2 days Time of Disposition: 11:11
--- NOTE | 2023-05-02 10:55 | XR ---
EXAMINATION TYPE: XR knee complete bilateral DATE OF EXAM: 05/02/2023 COMPARISON: 11/24/2015 HISTORY: 52-year-old female fall and bilateral knee pain TECHNIQUE: 3 views each side FINDINGS: There is mild degenerative spurring in the medial compartment on both sides. Mild degenerat bob spurring left patellofemoral compartment. Extensor mechanisms are intact. There is a small knee j oint effusion on the left. No acute fracture, subluxation, dislocation is seen. IMPRESSION: 1. Mild degenerative spurring particularly in the medial compartments and left patellofemoral compart ment. 2. Small knee joint effusion on the left is nonspecific. It may be reactive to patient's recent injur y. If pain persists or concern for internal derangement, MRI can be performed. 3. No acute osseous abnormality seen.
[2023-05-02] MEDS ORDERED: ACET/COD 300 MG/30 MG STARTER PACK 6 TAB BTL PO STA (11:09)
[2023-05-02 11:29] VITALS: BP 125/81; PULSE 87; RESP 18; TEMP 98.1
== END 2023-05-02 11:42 | disposition home or self-care (01) ==
LOC: EC 09:43
DX: M25.561 Pain in right knee (principal); M25.562 Pain in left knee; J45.909 Unspecified asthma, uncomplicated; K21.9 Gastro-esophageal reflux disease without esophagitis; I10 Essential (primary) hypertension; M19.90 Unspecified osteoarthritis, unspecified site; F41.9 Anxiety disorder, unspecified; F90.9 Attention-deficit hyperactivity disorder, unspecified type; Z79.899 Other long term (current) drug therapy; Z79.1 Long term (current) use of non-steroidal anti-inflammatories (NSAID); Z79.51 Long term (current) use of inhaled steroids
CPT/HCPCS: 73562; 99283; 96372; J1885

== ENCOUNTER → 2023-12-08 | Outpatient (CLI) | payer OTHER ==
--- NOTE | 2023-12-12 12:10 | MM ---
Reason for Exam: Screening (asymptomatic). Last mammogram was performed 12 year(s) and 9 month(s) ago. Patient History: Menarche at age 13. First Full-Term at age 20. Left ovary removed at age 30. Hysterectomy at age 34. Hormonal Contraceptives for 1 year from age 19 until age 20. Paternal aunt had breast cancer. Paternal aunt had breast cancer. Risk Values: Shereen 5 year model risk: 0.8%. NCI Lifetime model risk: 7.0%. Prior Study Comparison: 03/08/2011 Bilateral Screening Mammogram, [facility]. Tissue Density: The breast tissue is heterogeneously dense. This may lower the sensitivity of mammography. Findings: Analyzed By CAD. There is no suspicious group of microcalcifications or new suspicious mass. Overall Assessment: Negative, BI-RAD 1 Management: Screening Mammogram of both breasts in [address] [facility] will attempt to contact patient to return for supplemental views and ultrasound if indicated. Patient should continue monthly self-breast exams. A clinical breast exam by your physician is recommended on an annual basis. This exam should not preclude additional follow-up of suspicious palpable abnormalities. Note on Shereen scores and lifetime risk: 1. A Shereen score greater than 3% is considered moderate risk. If this is the case, consider specialist referral to assess eligibility for a risk reducing agent. 2. If overall lifetime risk for the development of breast cancer is 20% or higher, the patient may qualify for future screening with alternating mammogram and breast MRI. Electronically signed and approved by: Steven Bass DO
== END | disposition home or self-care (01) ==
LOC: RADMAMWWP 13:58
PROVIDERS: ATTEND Family Medicine
DX: Z12.31 Encounter for screening mammogram for malignant neoplasm of breast (principal); Z80.3 Family history of malignant neoplasm of breast
CPT/HCPCS: 77063; 77067